=== PATIENT | female | born 1950 | race Caucasian/White ===

== ENCOUNTER 2019-12-30 19:28 | Inpatient (IN) | payer OTHER, MEDICAID ==
[~2019-12-30] VITALS: Ht 162.6 cm; Wt 74.5 kg
[2019-12-30] MEDS ORDERED: SODIUM CHLORIDE 0.9% 1,000 ML IV ONE ×2 (19:54→22:15)
[2019-12-30] MEDS ORDERED: SODIUM CHLORIDE 0.9% 1,000 ML IVB ONE (19:57)
[2019-12-30 20:18] LABS: Urine Bacteria FEW /hpf (None Seen); Urine Blood TRACE /uL (Negative); Urine Hyaline Cast FEW /lpf (0 - 2); Urine Specific Gravity 1.016 (1.001-1.035); Urine WBC 305 /hpf (0 - 5); Urine WBC Clumps PRESENT /hpf (None Seen)
[2019-12-30 21:16] LABS: Basophils # (auto) 0.1 10 ^3/uL (0-0.2); Basophils % (auto) 0.9 % (0.0-2.0); Eosinophils # (auto) 0 10 ^3/uL (0-0.8); Eosinophils % (auto) 0.4 % (0.0-7.0); Hematocrit 40.5 % (36.0-46.0); Lymphocytes # (auto) 1.7 10 ^3/uL (0.4-5.4); Lymphocytes % (auto) 15.2 % (10.0-50.0); Mean Corpuscular Hemoglobin 30.9 pg (28.0-32.0); Mean Corpuscular Hgb Conc. 32.1 g/dL (32.0-36.0); Mean Corpuscular Volume 96.2 fL (80.0-100.0); Monocytes % (auto) 9.1 % (0.0-12.0); Neutrophils # (auto) 8.4 10 ^3/uL (1.6-8.6); Neutrophils % (auto) 74.4 % (37.0-80.0); Platelet Count (auto) 362 10^3/uL (140-450); Red Blood Cells 4.21 10^6/uL (4.0-5.20); Red Cell Distribution Width 13.7 % (11.8-14.3); White Blood Cell 11.3 10^3/uL (4.4-10.8)
[2019-12-30 21:24] LABS: INR 1.13 (0.9-1.15); Partial Thromboplastin Time 31.6 sec (23.64-32.05)
[2019-12-30 21:30] LABS: Albumin 3.9 g/dL (3.4-5.0); BUN/Creatinine Ratio 12.1; Potassium 4.6 mmol/L (3.5-5.1)
[2019-12-30 21:33] LABS: Lactic Acid w/Reflex 2.8 mmol/L (0.4-2.0)
[2019-12-30 21:35] LABS: Bilirubin, Total 0.5 mg/dL (0.2-1.0); Total Protein 8.3 g/dL (6.4-8.2)
[2019-12-30] MEDS ORDERED: cefTRIAXone 1GM/50ML D5W 50 ML IV ONE (22:00)
[2019-12-30] MEDS ORDERED: MORPHINE SULF INJ 2 MG/ML SYRINGE 1ML IV ONE ×2 (22:00)
[2019-12-30] MEDS ORDERED: ONDANSETRON HCL 4 MG/2 ML VIAL IV ONE ×2 (22:00)
[2019-12-30] MEDS ORDERED: ASPirin-EC 81 mg tab PO ONE (22:00)
[2019-12-30] MEDS ORDERED: NITROGLYCERIN 0.4 MG SL TAB SL PRN (22:15)
[2019-12-30] MEDS ORDERED: MORPHINE SULF INJ 2 MG/ML SYRINGE 1ML IV PRN (22:15)
[2019-12-30] MEDS: CIPROFLOXACIN 400MG/200ML 200 ML IV SCH (23:20)
[2019-12-31] VITALS: BP 140/85
[2019-12-31] MEDS: metroNIDAZOLE 500MG/100ML 100 ML IV SCH ×3 (01:27→22:00)
[2019-12-31] MEDS ORDERED: ATOR1TAB PO (01:43)
[2019-12-31] MEDS ORDERED: ALPR0.254 PO (01:43)
[2019-12-31] MEDS ORDERED: ALEN35TA18 PO (01:43)
[2019-12-31] MEDS ORDERED: ANAS1TAB7 PO (01:43)
[2019-12-31] MEDS ORDERED: APIX2.5T PO (02:09)
[2019-12-31] MEDS ORDERED: PROBTAB12 PO (02:09)
[2019-12-31] MEDS ORDERED: SOLI10TA7 PO (02:09)
[2019-12-31] MEDS ORDERED: BUSP5TAB51 PO (02:09)
[2019-12-31] MEDS ORDERED: OXYB10TA14 PO (02:09)
[2019-12-31] MEDS ORDERED: MET2I PO (02:09)
[2019-12-31] MEDS ORDERED: BECL80AE11 IN (02:09)
[2019-12-31] MEDS ORDERED: METO-158 PO (02:09)
[2019-12-31] MEDS ORDERED: TRAZ100T3 PO (02:09)
[2019-12-31] MEDS ORDERED: FAMO-12 PO (02:09)
[2019-12-31] MEDS ORDERED: CEPH500C PO (02:09)
[2019-12-31] MEDS ORDERED: FESO8TAB PO (02:09)
[2019-12-31] MEDS ORDERED: GABA-339 PO (02:09)
[2019-12-31] MEDS ORDERED: LISI-646 PO (02:09)
[2019-12-31] MEDS ORDERED: ESCI10TA53 PO (02:09)
[2019-12-31] MEDS ORDERED: LORazepam 0.5 MG TAB PO PRN (03:00)
[2019-12-31] MEDS ORDERED: MORPHINE SULF INJ 2 MG/ML SYRINGE 1ML IV PRN (03:00)
[2019-12-31 05:17] LABS: Basophils # (auto) 0.1 10 ^3/uL (0-0.2); Basophils % (auto) 0.8 % (0.0-2.0); Eosinophils # (auto) 0.1 10 ^3/uL (0-0.8); Eosinophils % (auto) 1.1 % (0.0-7.0); Hematocrit 33.7 % (36.0-46.0); Hemoglobin 11.2 g/dL (12.2-16.2); Lymphocytes # (auto) 1.5 10 ^3/uL (0.4-5.4); Lymphocytes % (auto) 20.2 % (10.0-50.0); Mean Corpuscular Hemoglobin 32.1 pg (28.0-32.0); Mean Corpuscular Hgb Conc. 33.3 g/dL (32.0-36.0); Mean Corpuscular Volume 96.4 fL (80.0-100.0); Monocytes # (auto) 0.9 10 ^3/uL (0-1.3); Monocytes % (auto) 11.6 % (0.0-12.0); Neutrophils % (auto) 66.3 % (37.0-80.0); Platelet Count (auto) 286 10^3/uL (140-450); Red Cell Distribution Width 13.7 % (11.8-14.3); White Blood Cell 7.6 10^3/uL (4.4-10.8)
[2019-12-31 05:28] VITALS: BP 141/86
[2019-12-31 05:36] LABS: Potassium 4.1 mmol/L (3.5-5.1)
[2019-12-31 05:45] LABS: Bilirubin, Total 0.4 mg/dL (0.2-1.0); Total Protein 6.3 g/dL (6.4-8.2)
[2019-12-31] MEDS: ONDANSETRON HCL 4 MG/2 ML VIAL IV PRN ×2 (07:03→18:25)
[2019-12-31] MEDS: ALPRAZolam 0.25 MG TAB PO SCH ×2 (08:30→23:13)
[2019-12-31] MEDS: LORazepam 2MG/ML-1ML VIAL IV PRN ×3 (08:30→20:56)
[2019-12-31 09:00] VITALS: BP 156/92
[2019-12-31] MEDS ORDERED: ENOXAPARIN SOD 40 MG/0.4 ML SYRINGE SC SCH (10:00)
[2019-12-31] MEDS: CIPROFLOXACIN 400MG/200ML 200 ML IV SCH ×2 (11:48→23:13)
[2019-12-31] MEDS: busPIRone HCL 10 MG TAB PO SCH (14:45)
[2019-12-31 17:00] VITALS: BP 147/75
[2019-12-31 20:00] VITALS: BP 154/97
[2019-12-31 22:00] VITALS: BP 153/97
[2019-12-31] MEDS: ATORVASTATIN 20 MG TAB PO SCH (23:13)
[2019-12-31] MEDS: APIXABAN 2.5 MG TAB PO SCH (23:14)
[2019-12-31] MEDS: LISINOPRIL 20 MG TAB PO SCH (23:14)
[2020-01-01] MEDS: LORazepam 2MG/ML-1ML VIAL IV PRN (02:57)
[2020-01-01 05:00] VITALS: BP 132/87
[2020-01-01 06:24] LABS: Basophils # (auto) 0 10 ^3/uL (0-0.2); Basophils % (auto) 0.2 % (0.0-2.0); Eosinophils # (auto) 0.1 10 ^3/uL (0-0.8); Hematocrit 36.4 % (36.0-46.0); Hemoglobin 12.3 g/dL (12.2-16.2); Lymphocytes # (auto) 1.7 10 ^3/uL (0.4-5.4); Lymphocytes % (auto) 23.3 % (10.0-50.0); Mean Corpuscular Hemoglobin 32.3 pg (28.0-32.0); Mean Corpuscular Hgb Conc. 33.8 g/dL (32.0-36.0); Mean Corpuscular Volume 95.6 fL (80.0-100.0); Monocytes # (auto) 0.8 10 ^3/uL (0-1.3); Monocytes % (auto) 10.7 % (0.0-12.0); Neutrophils # (auto) 4.8 10 ^3/uL (1.6-8.6); Neutrophils % (auto) 63.8 % (37.0-80.0); Nucleated Red Blood Cells % 0.1 %; Platelet Count (auto) 303 10^3/uL (140-450); Red Blood Cells 3.81 10^6/uL (4.0-5.20); Red Cell Distribution Width 13.5 % (11.8-14.3); White Blood Cell 7.4 10^3/uL (4.4-10.8)
[2020-01-01] MEDS: ALENDRONATE SODIUM 10 MG TAB PO SCH (06:37)
[2020-01-01 06:56] LABS: Potassium 3.5 mmol/L (3.5-5.1)
[2020-01-01 07:04] LABS: Albumin 3.2 g/dL (3.4-5.0); BUN/Creatinine Ratio 7.9; Bilirubin, Total 0.5 mg/dL (0.2-1.0); Calcium 8.3 mg/dL (8.5-10.1); Total Protein 6.8 g/dL (6.4-8.2)
[2020-01-01 08:00] VITALS: BP 119/62
[2020-01-01 09:00] VITALS: BP 119/62
[2020-01-01] MEDS: FESOTERODINE FUMARATE 8 MG PO SCH (10:00)
[2020-01-01] MEDS: Beclomethasone Dipropionate (Qvar Redihaler) 80 MCG IN SCH (10:00)
[2020-01-01] MEDS: ARIMIDEX 1 MG PO SCH (10:00)
[2020-01-01] MEDS: VESICARE 10 MG PO SCH (10:00)
[2020-01-01] MEDS: CIPROFLOXACIN 400MG/200ML 200 ML IV SCH ×2 (10:06→21:15)
[2020-01-01] MEDS: GABAPENTIN 300 MG CAP PO SCH (10:08)
[2020-01-01] MEDS: ALPRAZolam 0.25 MG TAB PO SCH ×2 (10:08→21:13)
[2020-01-01] MEDS: CEPHALEXIN 250 MG CAP PO SCH ×2 (10:09→21:13)
[2020-01-01] MEDS: busPIRone HCL 10 MG TAB PO SCH (10:10)
[2020-01-01] MEDS: FAMOTIDINE 20 MG TAB PO SCH (10:10)
[2020-01-01] MEDS: APIXABAN 2.5 MG TAB PO SCH ×2 (10:10→21:13)
[2020-01-01] MEDS: METOPROLOL TARTRATE 50 MG TAB PO SCH (10:12)
[2020-01-01] MEDS: LISINOPRIL 20 MG TAB PO SCH ×2 (11:30→21:14)
[2020-01-01] MEDS: metroNIDAZOLE 500MG/100ML 100 ML IV SCH ×2 (11:49→22:05)
[2020-01-01 13:00] VITALS: BP 113/67
[2020-01-01 17:00] VITALS: BP 124/71
[2020-01-01 21:20] VITALS: BP 134/69
[2020-01-01] MEDS: ATORVASTATIN 20 MG TAB PO SCH (22:07)
[2020-01-02 04:50] VITALS: BP 135/77
[2020-01-02] MEDS: ALENDRONATE SODIUM 10 MG TAB PO SCH (07:00)
[2020-01-02] MEDS ORDERED: NITR1CAP23 PO (08:31)
[2020-01-02 09:00] VITALS: BP 148/83
[2020-01-02] MEDS: FESOTERODINE FUMARATE 8 MG PO SCH (09:41)
[2020-01-02] MEDS: VESICARE 10 MG PO SCH (09:41)
[2020-01-02] MEDS: Beclomethasone Dipropionate (Qvar Redihaler) 80 MCG IN SCH (09:41)
[2020-01-02] MEDS: ARIMIDEX 1 MG PO SCH (09:41)
[2020-01-02] MEDS: metroNIDAZOLE 500MG/100ML 100 ML IV SCH (09:42)
[2020-01-02] MEDS: CIPROFLOXACIN 400MG/200ML 200 ML IV SCH (09:42)
[2020-01-02] MEDS: busPIRone HCL 10 MG TAB PO SCH (10:42)
[2020-01-02] MEDS: GABAPENTIN 300 MG CAP PO SCH (10:42)
[2020-01-02] MEDS: CEPHALEXIN 250 MG CAP PO SCH (10:42)
[2020-01-02] MEDS: FAMOTIDINE 20 MG TAB PO SCH (10:43)
[2020-01-02] MEDS: ALPRAZolam 0.25 MG TAB PO SCH (10:43)
[2020-01-02] MEDS: LISINOPRIL 20 MG TAB PO SCH (10:44)
[2020-01-02] MEDS: METOPROLOL TARTRATE 50 MG TAB PO SCH (10:45)
[2020-01-02] MEDS: APIXABAN 2.5 MG TAB PO SCH (10:45)
[2020-01-02 11:08] VITALS: BP 148/83
[2020-01-02 13:00] VITALS: BP 131/72
== END 2020-01-02 14:30 | disposition home health service (06) | DRG 690 ==
LOC: ER 19:28 → TELE 19:29 → TELE-WESTW 23:08
PROVIDERS: ADMIT Internal Medicine; ATTEND Internal Medicine
DX: N39.0 Urinary tract infection, site not specified (principal); I25.10 Atherosclerotic heart disease of native coronary artery without angina pectoris; F41.9 Anxiety disorder, unspecified; E78.5 Hyperlipidemia, unspecified; I10 Essential (primary) hypertension; R79.89 Other specified abnormal findings of blood chemistry; F17.210 Nicotine dependence, cigarettes, uncomplicated; F32.9 Major depressive disorder, single episode, unspecified; I45.6 Pre-excitation syndrome
CPT/HCPCS: 36415; 71045; 76775; 80053; 81001; 82150; 83605; 83690; 84443; 84484; 85025; 85610; 85730; 87081; 93005; 93306; G0378; J0696; J2405; J3490